=== PATIENT | male | born 1990 | race Two or more races ===

== ENCOUNTER 2017-09-12 09:09 | Emergency (ER) | payer OTHER ==
[~2017-09-12] VITALS: Ht 170.2 cm; Wt 76.2 kg
[~2017-09-12 09:09] MED LIST: AMOX1TAB12 PO; KETO10TA2 PO; MOTRIN800 MG PO; TRAMADOL HCL-AP1 TAB PO
== END 2017-09-12 16:19 | disposition home or self-care (01) ==
LOC: ER 09:09
DX: N20.1 Calculus of ureter (principal)

== ENCOUNTER 2023-10-07 14:04 | Emergency (ER) | payer OTHER ==
[~2023-10-07] VITALS: Ht 172.7 cm; Wt 77.1 kg
[2023-10-07 19:02] LABS: HEMATOCRIT 48.8 % (39.0-48.0); HEMOGLOBIN 16.9 g/dL (13-16.00); MEAN CORPUSCULAR HEMOGLOBIN 32.3 pg (27.00-32.0); MEAN CORPUSCULAR HGB CONC 34.8 g/dl (32.0-36.0); PLATELET COUNT 153 K/uL (150-450); RED BLOOD COUNT 5.24 M/uL (4.00-6.00)
[2023-10-07] MEDS ORDERED: KETOROLAC TROMETHAMINE 30 MG VIAL IM STA (19:29)
== END 2023-10-07 19:44 | disposition home or self-care (01) ==
LOC: ER 14:05
PROVIDERS: General Practice
DX: J06.9 Acute upper respiratory infection, unspecified (principal); R51.9 Headache, unspecified; Z20.822 Contact with and (suspected) exposure to COVID-19